=== PATIENT | female | born 1985 | race Caucasian/White ===

== ENCOUNTER 2024-03-05 09:35 | Emergency (ER) | payer MEDICAID ==
[~2024-03-05] VITALS: Ht 157.5 cm; Wt 62.5 kg
[2024-03-05 10:04] VITALS: BP 108/84; PULSE 78; RESP 18; TEMP 98; O2SAT 98
[2024-03-05] MEDS ORDERED: IBUP-1456 PO (10:34)
== END 2024-03-05 10:39 | disposition home or self-care (01) ==
LOC: ER 09:35
DX: S63.501A Unspecified sprain of right wrist, initial encounter (principal); W23.0XXA Caught, crushed, jammed, or pinched between moving objects, initial encounter; Y93.89 Activity, other specified; Y92.89 Other specified places as the place of occurrence of the external cause; Y99.8 Other external cause status
CPT/HCPCS: 73110